=== PATIENT | male | born 1985 | race Caucasian/White ===

== ENCOUNTER 2021-01-26 10:12 | Day surgery (SDC) | payer OTHER ==
[2021-01-26] MEDS ORDERED: Midazolam 1 MG/ML 2 ML SDV IV ONE (10:13)
[2021-01-26] MEDS ORDERED: Ketamine 200 MG/20 ML MDV IV ONE (10:13)
[2021-01-26] MEDS ORDERED: Glycopyrrolate 0.2 MG/ML SDV IVPUSH ONE (10:13)
[2021-01-26] MEDS ORDERED: Lidocaine 2% 5 ML SDV IV ONE (10:13)
[2021-01-26] MEDS ORDERED: Propofol 200 MG/20 ML SDV IV ONE (10:13)
[2021-01-26] MEDS ORDERED: Sodium Chloride 0.9% 10 ML Syringe FLUSH PRN (10:30)
[2021-01-26] MEDS: Lactated Ringers 1,000 ML IV SCH (10:46)
[2021-01-26] MEDS ORDERED: Glycopyrrolate 0.2 MG/ML SDV ONE (10:58)
[2021-01-26] MEDS ORDERED: Midazolam 1 MG/ML 2 ML SDV ONE (10:58)
[2021-01-26] MEDS ORDERED: Propofol 200 MG/20 ML SDV ONE ×2 (10:58→11:19)
[2021-01-26] MEDS ORDERED: Lidocaine 2% 5 ML SDV ONE (10:59)
[2021-01-26] MEDS ORDERED: Ketamine 200 MG/20 ML MDV ONE (11:02)
--- NOTE | 2021-01-26 12:02 | PCM.PRNOTE ---
- Free Text/Narrative Note: PROCEDURE PERFORMED: Esophagogastroduodenoscopy with biopsy PRE-PROCEDURE DIAGNOSIS/INDICATION FOR PROCEDURE: Persistent reflux symptoms; last EGD 2015 with esophagitis (biopsies without Almazan's) and antritis CONSENT: Informed consent was obtained prior to the procedure after discussion of the risks (including pain, bleeding, infection, perforation, need for further procedures, adverse reaction to anesthesia, cardiovascular event), benefits and alternatives and expected outcomes. Verbal consent given and consent form signed. PROCEDURAL PAUSE: Completed SEDATION: Per anesthesia DESCRIPTION OF PROCEDURE: Patient was brought back to the operating room and placed in a left lateral decubitus position. Bite block placed. After adequate sedation and anesthetic was administered, endoscope was inserted into the patient's mouth and was passed through the esophagus and stomach into the duodenum. Examined duodenum normal appearing. Pylorus normal appearing. Stomach, including viewing in retroflexion, normal appearing aside from mild gastritis, which was biopsied with cold forceps. 1-2cm sliding hiatal hernia was present with the gastroesophageal junction at 42 cm from the incisors. Esophagus notable for mildly irregular Z- line with <1cm projection of esophagitis, which was biopsied with cold forceps. The scope was removed without difficulty. Patient tolerated the procedure well after adequate sedation. No complications. IMPRESSION: Esophagogastroduodenoscopy performed revealing: - Mild gastritis, biopsied with pathology now pending - Mild distal esophagitis with <1cm Z-line irregularity, biopsied with pathology now pending - Small hiatal hernia PLAN: Will contact the patient when pathology results received. Discussed appropriate administration of antacid medication, for which he has now been having good control of symptoms in the past week.
== END 2021-01-26 12:50 | disposition home or self-care (01) ==
LOC: KA.SDS 10:12
PROVIDERS: ATTEND Family Medicine
DX: K21.00 Gastro-esophageal reflux disease with esophagitis, without bleeding (principal); K29.70 Gastritis, unspecified, without bleeding; K22.8 Other specified diseases of esophagus; R06.02 Shortness of breath; Z79.899 Other long term (current) drug therapy
CPT/HCPCS: 00731; J2250; J2704; J3490; J7120